=== PATIENT | female | born 1975 | race African-American/Black ===

== ENCOUNTER 2020-02-05 08:42 | Emergency (ER) | payer OTHER, MEDICAID ==
[~2020-02-05] VITALS: Ht 167.6 cm; Wt 95.0 kg
[2020-02-05] MEDS ORDERED: BACITRACIN ZINC OINT UDPKT TOP ONE (09:45)
[2020-02-05] MEDS ORDERED: IBUPROFEN 600MG TABLET PO ONE ×2 (09:45→12:00)
[2020-02-05] MEDS ORDERED: TETANUS, DIPHTHERIA, PERTUSSIS VAC/PF 0.5ML (>7YR OLD) IM ONE (09:45)
[2020-02-05] MEDS ORDERED: LIDOCAINE 1%/EPI 1:100,000 10 ML VIAL IJ ONE (09:45)
[2020-02-05] MEDS ORDERED: ACETAMINOPHEN 325MG TABLET PO ONE (09:45)
[2020-02-05] MEDS ORDERED: LIDOCAINE HCL/EPINEPHRINE 1%-EPI 1:100,000 20 ML VIAL INFIL NR (10:00)
[2020-02-05] MEDS ORDERED: FENTANYL CITRATE/PF 50MCG/ML 2ML VIAL IV ONE (10:30)
[2020-02-05 10:33] LABS: BASOPHILS % 0.7 % (0.0-2.0); EOSINOPHILS % 0.7 % (0.0-5.0); HEMATOCRIT. 43.3 % (36.0-48.0); HEMOGLOBIN. 14.6 g/dL (12.0-16.0); LYMPHOCYTES % 15.4 % (20.0-50.0); MEAN CORPUSCULAR HEMOGLOBIN 30.9 pg (28.0-32.0); MEAN CORPUSCULAR VOLUME 91.3 fL (81.0-99.0); MEAN PLATELET VOLUME 7.5 fl (7.4-10.4); MONOCYTES % 11.9 % (2.0-8.0); NEUTROPHILS % 71.3 % (40.0-76.0); PLATELET 336 x1000/uL (130-400); RED BLOOD CELL COUNT 4.74 mill/uL (4.2-5.4); RED CELL DISTRIBUTION WIDTH 13.3 % (11.6-14.6)
[2020-02-05 10:42] LABS: PROTHROMBIN TIME 10.9 sec (9.6-11.0)
[2020-02-05 10:46] LABS: CHLORIDE 100 mEq/L (98-107)
[2020-02-05 12:18] VITALS: BP 119/83
== END 2020-02-05 14:40 | disposition home or self-care (01) ==
LOC: ER 08:42 → EDBEDREQ 10:12 → ER 14:40 → CANBEDREQ 15:48
DX: L02.31 Cutaneous abscess of buttock (principal); I10 Essential (primary) hypertension; Z88.0 Allergy status to penicillin; Z98.890 Other specified postprocedural states
CPT/HCPCS: 10060; 36415; 71045; 80053; 84145; 85025; 85610; 87040; 90471; 90715; 93005; 96374; 99285; J3010; J3490

== ENCOUNTER 2020-02-06 17:42 | Emergency (ER) | payer OTHER, MEDICAID ==
[~2020-02-06] VITALS: Ht 170.2 cm; Wt 95.0 kg
[2020-02-06 17:49] VITALS: BP 117/80
[2020-02-06] MEDS ORDERED: LIDOCAINE 1%/EPI 1:100,000 10 ML VIAL IJ ONE (18:30)
[2020-02-06] MEDS ORDERED: HYDROCODONE/ACETAMINOPHEN 5/325MG TABLET PO ONE (18:30)
[2020-02-06] MEDS ORDERED: LIDOCAINE HCL/EPINEPHRINE 1%-EPI 1:100,000 20 ML VIAL INFIL NR (18:37)
== END 2020-02-06 19:56 | disposition home or self-care (01) ==
LOC: ER 17:42
DX: Z48.00 Encounter for change or removal of nonsurgical wound dressing (principal); L02.31 Cutaneous abscess of buttock; I10 Essential (primary) hypertension; Z88.0 Allergy status to penicillin
CPT/HCPCS: 10060; 99282; J3490

== ENCOUNTER 2020-04-26 11:41 | Emergency (ER) | payer OTHER, MEDICAID ==
[~2020-04-26] VITALS: Ht 167.6 cm; Wt 95.0 kg
[2020-04-26 12:14] VITALS: BP 139/94
[2020-04-26 12:42] LABS: CLARITY URINE TURBID (CLEAR); COLOR URINE YELLOW (YELLOW); KETONES URINE TRACE (NEGATIVE); LEUKOCYTE ESTERASE URINE 1+ (NEGATIVE); NITRITE URINE NEGATIVE (NEGATIVE); OCCULT BLOOD URINE TRACE (NEGATIVE); PH URINE 5.5 (4.5-8.0); PROTEIN URINE TRACE (NEGATIVE); SPECIFIC GRAVITY URINE 1.024 (1.005-1.030)
[2020-04-26] MEDS ORDERED: DOCUSATE SODIUM SUGAR FREE 100MG/10ML UDC NG ONE (13:45)
== END 2020-04-26 14:57 | disposition home or self-care (01) ==
LOC: ER 11:41
DX: H92.02 Otalgia, left ear (principal); H61.22 Impacted cerumen, left ear; I10 Essential (primary) hypertension; Z98.890 Other specified postprocedural states; Z88.0 Allergy status to penicillin
CPT/HCPCS: 81003; 81025; 99283

== ENCOUNTER 2021-02-18 09:11 | Emergency (ER) | payer OTHER, MEDICAID ==
[~2021-02-18] VITALS: Ht 167.6 cm; Wt 93.0 kg
[2021-02-18] MEDS ORDERED: ACETAMINOPHEN 325MG TABLET PO ONE (09:45)
[2021-02-18] MEDS ORDERED: IBUPROFEN 400MG TABLET PO ONE (09:45)
[2021-02-18 10:23] LABS: BASOPHILS % 0.6 % (0.0-2.0); EOSINOPHILS % 1.7 % (0.0-5.0); HEMATOCRIT. 47.1 % (36.0-48.0); HEMOGLOBIN. 15.5 g/dL (12.0-16.0); LYMPHOCYTES % 36.8 % (20.0-50.0); MEAN CORPUSCULAR HEMOGLOBIN 30.3 pg (28.0-32.0); MEAN CORPUSCULAR VOLUME 91.9 fL (81.0-99.0); MEAN PLATELET VOLUME 7.6 fl (7.4-10.4); MONOCYTES % 14.8 % (2.0-8.0); NEUTROPHILS % 46.1 % (40.0-76.0); PLATELET 277 x1000/uL (130-400); RED BLOOD CELL COUNT 5.12 mill/uL (4.2-5.4); RED CELL DISTRIBUTION WIDTH 13.1 % (11.6-14.6)
[2021-02-18 10:28] LABS: CHLORIDE 106 mEq/L (98-107)
[2021-02-18 11:48] LABS: CLARITY URINE CLOUDY (CLEAR); COLOR URINE DARK YELLOW (YELLOW); KETONES URINE TRACE (NEGATIVE); LEUKOCYTE ESTERASE URINE TRACE (NEGATIVE); NITRITE URINE NEGATIVE (NEGATIVE); OCCULT BLOOD URINE TRACE (NEGATIVE); PROTEIN URINE 1+ (NEGATIVE); SPECIFIC GRAVITY URINE 1.026 (1.005-1.030)
[2021-02-18 12:00] VITALS: BP 145/98
== END 2021-02-18 13:48 | disposition home or self-care (01) ==
LOC: ER 09:11
DX: M54.50 Low back pain, unspecified (principal); R82.71 Bacteriuria; R19.5 Other fecal abnormalities; M19.90 Unspecified osteoarthritis, unspecified site
CPT/HCPCS: 36415; 80048; 80076; 81003; 84484; 85025; 93005; 99284

== ENCOUNTER 2022-04-11 15:11 | Emergency (ER) | payer OTHER, MEDICAID ==
[~2022-04-11] VITALS: Ht 167.6 cm; Wt 93.0 kg
[2022-04-11 15:50] VITALS: BP 150/99
[2022-04-11] MEDS ORDERED: IBUP-2028 MT (20:23)
== END 2022-04-11 20:30 | disposition home or self-care (01) ==
LOC: ER 15:11
DX: M79.604 Pain in right leg (principal); I10 Essential (primary) hypertension; Z88.0 Allergy status to penicillin
CPT/HCPCS: 81025; 93971; 99284

== ENCOUNTER 2022-06-21 09:56 | Emergency (ER) | payer OTHER, MEDICAID ==
[~2022-06-21] VITALS: Ht 167.6 cm; Wt 93.0 kg
[~2022-06-21 09:56] MED LIST: IBUP-2028 MT
[2022-06-21] MEDS ORDERED: IBUPROFEN 600MG TABLET PO STA (12:22)
[2022-06-21] MEDS ORDERED: D-ME473S50 PO ×3 (12:50→13:30)
[2022-06-21] MEDS ORDERED: FLUT9.9S BOTHNSTRLS ×3 (12:50→13:30)
[2022-06-21] MEDS ORDERED: AZIT250T12 MT ×3 (12:50→13:30)
[2022-06-21] MEDS ORDERED: NAPR500T7 PO ×3 (12:50→13:30)
[2022-06-21 13:29] VITALS: BP 117/81
== END 2022-06-21 13:35 | disposition home or self-care (01) ==
LOC: ER 09:56
DX: J02.9 Acute pharyngitis, unspecified (principal); I10 Essential (primary) hypertension; Z88.0 Allergy status to penicillin; Z20.822 Contact with and (suspected) exposure to COVID-19; Z98.890 Other specified postprocedural states
CPT/HCPCS: 71045; 87426; 99284; C9803

== ENCOUNTER 2024-02-02 09:17 | Emergency (ER) | payer MEDICAID, MEDICARE, OTHER ==
[~2024-02-02] VITALS: Ht 167.6 cm; Wt 110.5 kg
[~2024-02-02 09:17] MED LIST changes: +AZIT250T12 MT; +D-ME473S50 PO; +FLUT9.9S BOTHNSTRLS; +NAPR500T7 PO
[2024-02-02 09:23] VITALS: O2SAT 98
[2024-02-02 10:03] LABS: HEMATOCRIT. 44.6 % (36.0-48.0); HEMOGLOBIN. 14.6 g/dL (12.0-16.0); LYMPHOCYTES % 28.6 % (20.0-50.0); MEAN CORPUSCULAR HEMOGLOBIN 30.6 pg (28.0-32.0); MEAN CORPUSCULAR HGB CONC 32.8 g/dL (31.0-37.0); MEAN CORPUSCULAR VOLUME 93.2 fL (81.0-99.0); MEAN PLATELET VOLUME 7.8 fl (7.4-10.4); MONOCYTES % 7.5 % (2.0-8.0); NEUTROPHILS % 60.9 % (40.0-76.0); PLATELET 299 x1000/uL (130-400); RED BLOOD CELL COUNT 4.79 mill/uL (4.2-5.4); WHITE BLOOD COUNT 6.6 x1000/uL (4.5-11.0)
[2024-02-02 10:14] LABS: INR 0.9; PARTIAL THROMBOPLASTIN TIME 25.3 sec (23.4-31.0); PROTHROMBIN TIME 10.3 sec (9.6-11.0)
[2024-02-02] MEDS ORDERED: HYDR12.54 MT (10:59)
[2024-02-02 11:03] VITALS: BP 191/111; PULSE 74; RESP 16; TEMP 36.61404; O2SAT 99
== END 2024-02-02 11:01 | disposition home or self-care (01) ==
LOC: ER 09:17
DX: R04.0 Epistaxis (principal); I10 Essential (primary) hypertension; Z88.0 Allergy status to penicillin; Z79.899 Other long term (current) drug therapy
CPT/HCPCS: 36415; 81025; 85025; 99283

== ENCOUNTER 2024-04-16 07:57 | Emergency (ER) | payer MEDICARE, MEDICAID ==
[~2024-04-16] VITALS: Ht 167.6 cm; Wt 100.0 kg
[~2024-04-16 07:57] MED LIST changes: +HYDR12.54 MT; +NAPR-1486 PO; -NAPR500T7 PO
[2024-04-16 08:02] VITALS: O2SAT 98
[2024-04-16 08:13] VITALS: BP 129/85; PULSE 99; RESP 18; TEMP 37.3; O2SAT 96
== END 2024-04-16 09:31 | disposition home or self-care (01) ==
LOC: ER 08:09
DX: B34.9 Viral infection, unspecified (principal); I10 Essential (primary) hypertension; Z79.899 Other long term (current) drug therapy; Z88.0 Allergy status to penicillin; Z98.890 Other specified postprocedural states
CPT/HCPCS: 99281